=== PATIENT | female | born 1965 | race Caucasian/White ===

== ENCOUNTER 2024-08-15 00:17 | Inpatient (IN) | payer MEDICAID, SELFPAY ==
--- NOTE | ~2024-08-15 | CT_ITS ---
CLINICAL HISTORY: sudden onset delusons CT head without contrast Comparison: None Findings: No intra-axial mass, midline shift, hydrocephalus, or acute hemorrhage. No significant atrophy-like change or white matter disease. The visualized paranasal sinuses and mastoid air cells are normal. The orbits are unremarkable. No skull fracture. IMPRESSION: 1. No acute intracranial findings. This document has been electronically signed by: Devin Fuller MD on 08/19/2024 21:30:18
[2024-08-15 02:23] VITALS: BP 108/96; PULSE 88; RESP 17; TEMP 36.6; O2SAT 96
[2024-08-15 02:35] VITALS: BMI 22.7
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
[2024-08-15 08:10] VITALS: BP 104/62; PULSE 78; RESP 16; TEMP 36.8; O2SAT 98
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
[2024-08-15] MEDS: Nicotine Polacrilex 2 MG GUM 4 MG BUCCAL ×2 (10:57→14:56)
[2024-08-15] MEDS: risperiDONE 0.25 MG TABLET PO ×2 (15:56→21:31)
[2024-08-16 08:00] VITALS: BP 105/57; PULSE 79; RESP 16; TEMP 36.8; O2SAT 96
[2024-08-16] MEDS: risperiDONE 0.25 MG TABLET PO ×2 (08:33→21:03)
[2024-08-16] MEDS: Nicotine Polacrilex 2 MG GUM 4 MG BUCCAL ×2 (09:58→14:52)
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
[2024-08-16 20:00] VITALS: BP 117/66; PULSE 77; RESP 16; TEMP 36.7; O2SAT 98
[2024-08-16] MEDS: traZODone HCL 50 MG TABLET PO (22:30)
[2024-08-17 07:39] VITALS: BP 82/47; PULSE 69; RESP 16; TEMP 36.4; O2SAT 97
[2024-08-17 09:30] VITALS: BP 112/73
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
[2024-08-17] MEDS: Nicotine Polacrilex 2 MG GUM 4 MG BUCCAL (17:09)
[2024-08-17 20:06] VITALS: BP 102/68; PULSE 77; TEMP 36.8; O2SAT 99
[2024-08-17] MEDS: risperiDONE 0.25 MG TABLET PO (20:47)
[2024-08-18 08:10] VITALS: BP 105/56; PULSE 68; TEMP 36.4; O2SAT 98
[2024-08-18 09:04] LABS: Estimated Average Glucose 111 mg/dL; Hemoglobin A1C 127.7665 umol/L; Hemoglobin A1c % 5.5 % (<6.0); Total Hemoglobin (HGBA1C) 3487.4933 umol/L
[2024-08-18 09:12] LABS: Alanine Aminotransferase 27 U/L (0-31); Albumin Level 4.2 g/dL (3.5-5.0); Alkaline Phosphatase 62 U/L (39-117); Anion Gap 13 (12-20); Aspartate Amino Transferase 21 U/L (5-31); Bilirubin Total 0.5 mg/dL (0.0-1.0); Blood Urea Nitrogen 14 mg/dL (9-16); Calcium 9.3 mg/dL (8.4-10.2); Carbon Dioxide 28 mmol/L (22-29); Chloride 106 mmol/L (96-108); Cholesterol 186 mg/dL (<200); Creatinine Clr Calc Pharmacy 80.7; Estimated Glomerular Filt Rate > 60; Glucose Random 98 mg/dL (60-115); HDL Cholesterol 54 mg/dL (>40); LDL Cholesterol Calculated 112 mg/dL (<100); Sodium 143 mmol/L (135-145); Total Protein 6.9 g/dL (6.5-8.0); Triglycerides 101 mg/dL (<150)
[2024-08-18 09:40] LABS: TSH reflex Free T4 0.87 uIU/mL (0.32-4.0)
[2024-08-18 13:33] LABS: Reflex LDLD? No
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
[2024-08-18 19:49] VITALS: BP 138/63; PULSE 80; TEMP 36.8; O2SAT 99
[2024-08-18] MEDS: risperiDONE 0.25 MG TABLET PO (20:33)
[2024-08-19 08:00] VITALS: BP 102/62; PULSE 62; RESP 16; TEMP 36.7; O2SAT 98
[2024-08-19] MEDS: Nicotine Polacrilex 2 MG GUM 4 MG BUCCAL (09:34)
[2024-08-19 19:29] VITALS: BP 109/64; PULSE 74; TEMP 37.1; O2SAT 98
[2024-08-19] MEDS: risperiDONE 0.25 MG TABLET PO (20:07)
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
[2024-08-20 07:00] VITALS: BMI 23.1
[2024-08-20 08:00] VITALS: BP 109/54; PULSE 95; RESP 18; TEMP 36.8; O2SAT 96
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
[2024-08-20] MEDS: Nicotine Polacrilex 2 MG GUM 4 MG BUCCAL ×2 (13:25→18:02)
[2024-08-20] MEDS: risperiDONE 0.25 MG TABLET PO (19:50)
[2024-08-20 20:00] VITALS: BP 115/68; PULSE 78; TEMP 37.2; O2SAT 100
[2024-08-21 08:00] VITALS: BP 96/57; PULSE 56; TEMP 36.4; O2SAT 98
[2024-08-21] MEDS: Nicotine Polacrilex 2 MG GUM 4 MG BUCCAL ×2 (08:37→11:17)
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
== END 2024-08-21 11:50 | disposition home or self-care (01) | DRG 751 ==
PROVIDERS: Admitting Provider Psychiatry & Neurology Psychiatry; Visit Provider Psychiatry & Neurology Psychiatry
DX: F23 Brief psychotic disorder (principal); F17.210 Nicotine dependence, cigarettes, uncomplicated; F43.10 Post-traumatic stress disorder, unspecified; Z71.6 Tobacco abuse counseling
CPT/HCPCS: 36415; 70450; 80053; 80061; 83036; 84443

== ENCOUNTER 2024-08-15 00:17 | Outpatient (BNV) | payer MEDICAID, SELFPAY | END 2024-08-18 19:39 | PROVIDERS: Admitting Provider Psychiatry & Neurology Psychiatry; Visit Provider Nuclear Medicine | DX: F22 Delusional disorders (principal) | CPT/HCPCS: 70450 ==

== ENCOUNTER → 2024-08-15 00:17 | Outpatient (BNV) | payer OTHER, SELFPAY | PROVIDERS: Admitting Provider Psychiatry & Neurology Psychiatry; Visit Provider Psychiatry & Neurology Psychiatry | DX: F22 Delusional disorders (principal); F23 Brief psychotic disorder; F43.11 Post-traumatic stress disorder, acute | CPT/HCPCS: 99232 ==

== ENCOUNTER → 2024-08-15 00:17 | Outpatient (BNV) | payer SELFPAY | PROVIDERS: Admitting Provider Psychiatry & Neurology Psychiatry; Visit Provider Physician Assistant | DX: Z02.2 Encounter for examination for admission to residential institution (principal) | CPT/HCPCS: 99429 ==